=== PATIENT | female | born 2000 | race Caucasian/White ===

== ENCOUNTER 2024-10-06 12:04 | Emergency (ER) | payer OTHER ==
[~2024-10-06] VITALS: Ht 172.7 cm; Wt 68.2 kg
[2024-10-06 12:13] VITALS: TEMP 98
[2024-10-06 14:32] LABS: BASOPHILS % (AUTO) 0.5 % (0.0-2.0); EOSINOPHILS % (AUTO) 0.8 % (1.0-6.0); HEMATOCRIT 39.8 % (36-46); LYMPHOCYTES # (AUTO) 1.9 K/uL (1.0-4.8); MEAN CORPUSCULAR HEMOGLOBIN 29.1 pg (26.0-34.0); MEAN CORPUSCULAR HGB CONC 32.6 G/dL (31.0-37.0); MEAN CORPUSCULAR VOLUME 89 fL (80-100); MONOCYTES # (AUTO) 0.4 K/uL (0.1-1.0); MONOCYTES % (AUTO) 6.5 % (2.0-9.0); NEUTROPHILS # (AUTO) 3.6 K/uL (1.8-7.7); NEUTROPHILS % (AUTO) 60.2 % (40.0-70.0); PLATELET COUNT (AUTO) 294 K/uL (150-450); RED BLOOD CELL COUNT(AUTO) 4.46 MIL/uL (4.00-5.20); RED CELL DISTRIBUTION WIDTH 13.5 % (11.5-14.5)
[2024-10-06 14:47] LABS: ANION GAP 8 mmol/L (8-16); CALCIUM, TOTAL 9.1 mg/dL (8.8-10.5); CARBON DIOXIDE 29 mmol/L (22-29); CHLORIDE 101 mmol/L (98-107); GLOMERULAR FILTR. RATE CALC > 60 mL/min (>60); GLUCOSE,RANDOM 96 mg/dL (70-110); POTASSIUM 4.3 mmol/L (3.5-5.1); SODIUM SERUM 138 mmol/L (136-145); UREA NITROGEN, BLOOD 11 mg/dL (7-18)
[2024-10-06 14:49] LABS: PREGNANCY RESULT, SERUM NEGATIVE (NEGATIVE)
[2024-10-06 14:53] LABS: ALANINE AMINOTRANSFERASE 22 U/L (12-78); ALBUMIN 4.3 g/dL (3.4-5.0); ALKALINE PHOSPHATASE 55 U/L (46-116); ASPARTATE AMINOTRANSFERASE 20 U/L (15-37); BILIRUBIN,TOTAL 0.4 mg/dL (0.1-1.0); TOTAL PROTEIN, SERUM 7.9 g/dL (6.4-8.2)
[2024-10-06 15:18] LABS: HIV RAPID SCREEN NON-REACTIVE (NONREACTIVE)
[2024-10-06 16:00] VITALS: BP 128/72; PULSE 62; RESP 18; O2SAT 99
[2024-10-08 05:08] LABS: HEPATITIS A ANTIBODY IGM Negative (Negative); HEPATITIS B CORE IGM Negative (Negative); HEPATITIS C AB (EIA) Non Reactive (Non Reactive)
== END 2024-10-06 16:42 | disposition home or self-care (01) ==
LOC: EMS 12:04
DX: S61.233A Puncture wound without foreign body of left middle finger without damage to nail, initial encounter (principal); Z77.21 Contact with and (suspected) exposure to potentially hazardous body fluids; W46.0XXA Contact with hypodermic needle, initial encounter; Y93.89 Activity, other specified; Y92.89 Other specified places as the place of occurrence of the external cause; Y99.0 Civilian activity done for income or pay
CPT/HCPCS: 80053; 80074; 84703; 85025; 99283

== ENCOUNTER 2024-12-24 15:21 | Emergency (ER) | payer OTHER ==
[~2024-12-24] VITALS: Ht 170.2 cm; Wt 70.5 kg
[2024-12-24 15:43] VITALS: TEMP 98
[2024-12-24] MEDS: IBUPROFEN 600 MG TABLET PO ONE (16:50)
[2024-12-24 18:36] VITALS: BP 116/71; PULSE 75; RESP 18; O2SAT 99
== END 2024-12-24 18:45 | disposition home or self-care (01) ==
LOC: EMS 15:23
DX: S09.90XA Unspecified injury of head, initial encounter (principal); Y04.8XXA Assault by other bodily force, initial encounter; Y93.89 Activity, other specified; Y92.89 Other specified places as the place of occurrence of the external cause; Y99.0 Civilian activity done for income or pay
CPT/HCPCS: 70160; 99283

== ENCOUNTER 2025-06-23 13:31 | Emergency (ER) | payer OTHER ==
[~2025-06-23] VITALS: Ht 172.7 cm; Wt 72.7 kg
[2025-06-23 13:47] VITALS: BP 113/59; PULSE 61; RESP 15; TEMP 99.1; O2SAT 98
[2025-06-24] MEDS ORDERED: ONDA-104 PO (19:24)
== END 2025-06-23 15:04 | disposition home or self-care (01) ==
LOC: EMS 14:08
DX: S00.03XA Contusion of scalp, initial encounter (principal); Y08.89XA Assault by other specified means, initial encounter; Y93.01 Activity, walking, marching and hiking; Y92.89 Other specified places as the place of occurrence of the external cause; Y99.8 Other external cause status
CPT/HCPCS: 99282; Z7502

== ENCOUNTER 2025-06-24 16:21 | Emergency (ER) | payer OTHER ==
[~2025-06-24] VITALS: Ht 172.7 cm; Wt 79.0 kg
[2025-06-24 17:24] VITALS: BP 96/59; PULSE 68; RESP 18; TEMP 98.605328; O2SAT 98
[2025-06-24] MEDS: ONDANSETRON 4 MG TABLET PO ONE (17:27)
[2025-06-24] MEDS ORDERED: ONDA-104 PO (19:24)
== END 2025-06-24 19:35 | disposition home or self-care (01) ==
LOC: EMS 16:26
DX: S00.03XA Contusion of scalp, initial encounter (principal); R42 Dizziness and giddiness; R11.0 Nausea; W22.8XXA Striking against or struck by other objects, initial encounter; Y93.89 Activity, other specified; Y92.89 Other specified places as the place of occurrence of the external cause; Y99.8 Other external cause status
CPT/HCPCS: 99284; 70450; 84703; Q0162